=== PATIENT | female | born 1995 | race Caucasian/White ===

== ENCOUNTER 2017-09-15 18:47 | Inpatient (IN) | payer OTHER ==
[~2017-09-15 18:47] MED LIST: ISOVUE-370 76%-LOCM 1 ML ONE
[2017-09-15] MEDS ORDERED: Fentanyl 100 MCG/2 ML VIAL ONE (19:09)
[2017-09-15 19:28] LABS: #Eosinphils 0.1 thou/uL (0.0-0.7); #Lymphocytes 2.3 thou/uL (1.20-3.40); #Monocytes 0.7 thou/uL (0.11-0.59); #Neutrophils 7.8 thou/uL (1.40-6.50); %Basophils 0.3 % (0.0-1.0); %Eosinophils 0.7 % (0.0-10.0); %Lymphocytes 20.9 % (21.0-51.0); %Monocytes 6.3 % (0.0-10.0); Hematocrit 34.8 % (36.0-47.0); Mean Platelet Volume 6.5 fL (7.4-10.4); Red Blood Cell (RBC) Count 4.09 mill/uL (4.20-5.40); White Blood Cell (WBC) Count 10.9 thou/uL (4.8-10.8)
[2017-09-15 19:30] LABS: Anion Gap 11 mmol/L (-14-95); Lactate 1.41 mmol/L (0.50-2.20); POC Est. GFR-MDRD-African-Amer Greater than 60 (2-60); POC Estimated GFR-MDRD Greater than 60 (2-60); T. Carbon Dioxide 24.8 mmol/L (1.0-85.0); pH (Venous) 7.373 (7.35-7.45); vO2 Saturation-calc 74.7 % (0.0-100.0)
[2017-09-15 19:35] LABS: PTT 28.8 SEC (22.9-36.1); Prothrombin Time 14.4 SEC (12.0-14.7)
[2017-09-15 19:50] LABS: ALT (SGPT) 17 U/L (8-55); AST (SGOT) 26 U/L (5-34); Alkaline Phosphatase 48 U/L (40-150); Anion Gap 11 mmol/L (10-20); BUN (Urea Nitrogen) 9 mg/dL (7.0-18.7); Bilirubin, Total 0.5 mg/dL (0.2-1.2); Calc. Creatinine Clearance 0 mL/min (70-130); Carbon Dioxide 21 mmol/L (22-29); Chloride 108 mmol/L (98-107); Estimated GFR-MDRD 89; Globulin 2.6 g/dL (2.4-3.5); Lipase 35 U/L (8-78); Protein, Total 6.6 g/dL (6.0-8.3)
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
[2017-09-15] MEDS ORDERED: Ondansetron HCl/PF 4 MG/2 ML Vial ONE (22:00)
[2017-09-15] MEDS ORDERED: Morphine 2 MG/ML SYRINGE ONE (22:00)
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
[2017-09-15] MEDS ORDERED: Ondansetron ODT 4 MG TAB SL PRN (23:38)
[2017-09-15] MEDS ORDERED: Ondansetron HCl/PF 4 MG/2 ML Vial IVP PRN (23:38)
[2017-09-15] MEDS ORDERED: Acetaminophen 325 MG TAB PO PRN (23:38)
[2017-09-15] MEDS ORDERED: Morphine 2 MG/ML SYRINGE SLOW IVP PRN (23:43)
--- NOTE | 2017-09-15 23:49 | RAD ---
LEFT KNEE FOUR VIEWS: 09/15/17 HISTORY: Trauma to knee. There is a tiny amount of joint effusion which is slightly dense in appearance and findings are susp icious for a small avulsive injury in the region of the tibial spines with some subtle lucency in th is area is seen on the AP projection and what appears to be a bony density posteriorly. This would r aise the possibility that there has been a cruciate ligament injury. MRI would be helpful in further assessment. I do not see any signs that would suggest a tibial plateau fracture. IMPRESSION: Suggestion of possible avulsive type injury in the tibial spine region raising the possibility of a cruciate ligament injury. POS: [facility]
[2017-09-16 00:19] VITALS: BMI 21.4
[2017-09-16] MEDS: Sodium Chloride 0.9% 1,000 ML IV SCH ×2 (00:26→06:20)
[2017-09-16] MEDS ORDERED: Dextrose 50% Abboject 50 ML SYRINGE SLOW IVP PRN ×2 (10:01→10:08)
[2017-09-16] MEDS ORDERED: Promethazine HCl 25 MG/ML VIAL IM PRN ×2 (10:01)
[2017-09-16] MEDS ORDERED: Dextrose 5% in Water 1,000 ML IV PRN ×2 (10:01→10:08)
[2017-09-16] MEDS: D5 1/2 NS w/20 mEq KCL 1,000 ML IV SCH ×3 (10:34→19:57)
[2017-09-16] MEDS: Morphine 2 MG/ML SYRINGE IVP PRN ×3 (10:50→21:31)
[2017-09-16] MEDS: Ondansetron HCl/PF 4 MG/2 ML Vial IVP PRN (10:54)
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
--- NOTE | 2017-09-16 14:00 | MRI ---
MRI OF LEFT KNEE WITHOUT CONTRAST: HISTORY: Injury. COMPARISON: Knee radiograph prior day. FINDINGS: Medial Meniscus: There is 2-3 mm medial extrusion. There is abnormal signal at the posterior root attachment indicat ing partial tearing. Lateral Meniscus: Intact. The ACL is intact. There is avulsion of the PCL foot plate displaced 3 mm. The MCL is intact as well as the LCL. Extensor Mechanism: Quadriceps tendon, patella, and patella tendon are all intact. Cartilage: Patellofemoral Compartment: Intact. Medial Compartment: Intact. Lateral Compartment: Intact. Muscles: There is a grade I injury of the popliteus. There is abnormal edema of the popliteus bursa. IMPRESSION: Minimally displaced avulsion fracture of the posterior cruciate ligament foot plate with partial tea ring of posterior root attachment medial meniscus. POS: [facility]
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
[2017-09-16] MEDS: Ondansetron ODT 4 MG TAB PO PRN (19:09)
[2017-09-16] MEDS: Famotidine 20 MG TAB PO SCH (19:56)
[2017-09-16] MEDS: Famotidine/PF 20 mg/2ml Vial SLOW IVP SCH (19:57)
[2017-09-16] MEDS: Enoxaparin Sodium 30 MG/0.3 ML SYRINGE SC SCH (21:32)
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
[2017-09-17] MEDS: Morphine 2 MG/ML SYRINGE IVP PRN ×4 (00:40→11:18)
[2017-09-17] MEDS: D5 1/2 NS w/20 mEq KCL 1,000 ML IV SCH (03:53)
[2017-09-17 05:32] LABS: #Eosinphils 0.1 thou/uL (0.0-0.7); #Lymphocytes 1.7 thou/uL (1.20-3.40); #Monocytes 0.9 thou/uL (0.11-0.59); #Neutrophils 3.5 thou/uL (1.40-6.50); %Basophils 0.6 % (0.0-1.0); %Eosinophils 1.7 % (0.0-10.0); %Monocytes 14.4 % (0.0-10.0); Hematocrit 31.2 % (36.0-47.0); Mean Platelet Volume 6.8 fL (7.4-10.4); Red Blood Cell (RBC) Count 3.61 mill/uL (4.20-5.40); White Blood Cell (WBC) Count 6.2 thou/uL (4.8-10.8)
[2017-09-17 05:46] LABS: Anion Gap 8 mmol/L (10-20); BUN (Urea Nitrogen) Less than 4 mg/dL (7.0-18.7); Calc. Creatinine Clearance 117 mL/min (70-130); Calcium 8.7 mg/dL (7.8-10.44); Carbon Dioxide 24 mmol/L (22-29); Chloride 107 mmol/L (98-107); Estimated GFR-MDRD Greater than 90
[2017-09-17] MEDS: Ondansetron ODT 4 MG TAB PO PRN (08:18)
[2017-09-17] MEDS: Famotidine 20 MG TAB PO SCH ×2 (09:04→20:38)
[2017-09-17] MEDS: Famotidine/PF 20 mg/2ml Vial SLOW IVP SCH (09:19)
--- NOTE | 2017-09-17 09:29 | RAD ---
CHEST 1 VIEW: History Pneumothorax. COMPARISON: Chest 1 view prior day. FINDINGS: Left apical pneumothorax not well appreciated on today's examination. Trace contusion of the lingul a. IMPRESSION: 1. No residual pneumothorax is seen on today's examination. 2. Right clavicular fracture. 3. Trace contusion of the lingula. 4. T12 compression fracture is similar. POS: [facility]
[2017-09-17] MEDS ORDERED: traMADol HCl 50 MG TAB PO PRN ×2 (11:48)
[2017-09-17] MEDS ORDERED: Cyclobenzaprine 10 MG TAB PO PRN (11:48)
[2017-09-17] MEDS: Ibuprofen 600 MG TAB PO SCH ×2 (13:31→20:37)
[2017-09-17] MEDS: Acetaminophen 325 MG TAB PO SCH ×3 (13:31→20:37)
[2017-09-17] MEDS ORDERED: Senokot 8.6 MG TAB PO SCH (14:00)
[2017-09-17] MEDS ORDERED: Docusate 100 MG CAP PO SCH (14:00)
[2017-09-17] MEDS: Senokot 8.6 MG TAB PO SCH (14:37)
[2017-09-17] MEDS: Docusate 100 MG CAP PO SCH ×2 (14:37→15:10)
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
[2017-09-17] MEDS: Enoxaparin Sodium 30 MG/0.3 ML SYRINGE SC SCH (20:37)
[2017-09-18] MEDS: Acetaminophen 325 MG TAB PO SCH ×5 (02:18→16:59)
[2017-09-18] MEDS: Ibuprofen 600 MG TAB PO SCH ×2 (06:22→13:38)
[2017-09-18] MEDS: Docusate 100 MG CAP PO SCH (08:44)
[2017-09-18] MEDS: Famotidine 20 MG TAB PO SCH (08:44)
[2017-09-18] MEDS: Senokot 8.6 MG TAB PO SCH (08:45)
--- NOTE | 2017-09-18 10:20 | RAD ---
PORTABLE AP CHEST: Date: 09/18/17 HISTORY: Left-sided pneumothorax. COMPARISON: 09/17/17. FINDINGS: No pneumothorax is appreciated on this examination. Lungs overall appear clear. The mild contusion s een at the left lung base on prior CT scan exam is not well appreciated on this study. In addition, the mild compression fracture of the superior end plate of T12 vertebral body is also not well seen on this AP projection. There has been no interval change from prior study. IMPRESSION: 1. No acute cardiopulmonary process. 2. Left-sided pneumothorax is not visualized on this exam. 3. Stable right clavicle fracture. POS: [facility]
[2017-09-18] MEDS: Ondansetron ODT 4 MG TAB PO PRN (10:35)
[2017-09-18] MEDS: Ondansetron HCl/PF 4 MG/2 ML Vial IVP PRN (11:30)
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
[2017-09-18 17:30] VITALS: BP 113/77; TEMP 98.8
== END 2017-09-18 18:51 | disposition home or self-care (01) | DRG 200 ==
LOC: ERS 18:47 → SURG A 23:12
PROVIDERS: ADMIT Surgery; ATTEND Surgery
DX: S27.0XXA Traumatic pneumothorax, initial encounter (principal); S22.089A Unspecified fracture of T11-T12 vertebra, initial encounter for closed fracture; S27.329A Contusion of lung, unspecified, initial encounter; S42.001A Fracture of unspecified part of right clavicle, initial encounter for closed fracture; S06.0X0A Concussion without loss of consciousness, initial encounter; V43.62XA Car passenger injured in collision with other type car in traffic accident, initial encounter; Y92.410 Unspecified street and highway as the place of occurrence of the external cause; Z88.2 Allergy status to sulfonamides; S82.841A Displaced bimalleolar fracture of right lower leg, initial encounter for closed fracture; S62.512A Displaced fracture of proximal phalanx of left thumb, initial encounter for closed fracture; S76.112A Strain of left quadriceps muscle, fascia and tendon, initial encounter
CPT/HCPCS: 36415; 70450; 71010; 71260; 72125; 74177; 80048; 80053; 80307; 82330; 82803; 83605; 83690; 84703; 85025; 85610; 85730; 96361; 96374; 96375; G0390; G8978-GP-CL; G8980-GP-CK; J1650; J2270; J2405; J3010; L0639; Q0162; S0028